=== PATIENT | male | born 1945 | race Caucasian/White ===

== ENCOUNTER 2018-02-07 13:12 | Inpatient (IN) | payer OTHER, BC ==
[2018-02-07] MEDS ORDERED: ceFAZolin 2 GM/SWFI 2 GM/20 ML SYR IVP ONE ×2 (14:14→15:11)
[2018-02-07] MEDS ORDERED: ACETAMINOPHEN 500 MG TAB PO ONE (15:11)
[2018-02-07 15:18] LABS: INR 1.04 (0.83-1.16); PROTIME(PATIENT) 13.8 SEC (12.0-15.0)
--- NOTE | 2018-02-07 15:48 | CPEKG ---
Heart Rate: 63 RR Interval: 952 P-R Interval: 213 QRSD Interval: 88 QT Interval: 388 QTC Interval: 398 P [place]: 27 QRS [place]: 64 T Wave [place]: 7 EKG Severity - NORMAL ECG - EKG Impression: SINUS RHYTHM Electronically Signed By: Maxwell Ward 07-Feb-2018 16:18:35
[2018-02-07] MEDS ORDERED: BUPIVACAINE/EPI 0.5% 30 ML SDV ONE (16:23)
--- NOTE | 2018-02-07 16:31 | GCON ---
[noe duncan] CONSULTATION DATE OF CONSULTATION: 02/07/2018 Patient is a pleasant 72-year-old gentleman who had a mechanical fall yesterday landing on his left h ip. He was actually able to walk on, but then after a long car ride, he was down to [facility], he had worsening pain, sought care today, where hip film revealed a possible left intertrochan teric fracture. He was admitted by Dr. Nickolas Contreras who asked me to see him in consultation. Regarding his exertional tolerance, the patient is able to achieve far greater than 4 METs without an y cardiopulmonary symptoms. He has a history of a normal stress test which was obtained for unclear reasons. He has not had PND, orthopnea, or lower extremity edema. He has not had bleeding problems, did not have constipation. His pain is well controlled right now. He has not had any fever, chills , cough, shortness of breath, nausea, vomiting, diarrhea. REVIEW OF SYSTEMS: Complete 10-point review of systems conducted, negative except as noted in the HP I. PAST MEDICAL HISTORY: 1. 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 2. Hyperlipidemia. 3. Hypothyroidism. ALLERGIES: No known drug allergies. MEDICATIONS: Simvastatin, levothyroxine. 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 Rare alcohol. No tobacco. FAMILY HISTORY: Reviewed and unremarkable. Parents . PHYSICAL EXAMINATION: VITAL SIGNS: Temp 36.5, blood pressure 139/80, pulse 79, breathing 18 times a minute, 96% on room air. GENERAL: No acute distress, sclerae anicteric, oropharynx clear, mucous mem branes moist. NECK: Supple without lymphadenopathy or JVD. LUNGS: Clear to auscultation bilateral ly. HEART: S1, S2. ABDOMEN: Soft, nontender, nondistended. LOWER EXTREMITIES: No edema. Calves no ntender. SKIN: Without rash. NEUROLOGIC: Nonfocal. LABORATORY: Sodium 140, potassium 4.8, chloride 104, bicarb 25, BUN 20, creatinine 0.9, coags normal . White count 5, hematocrit 41, platelets 180,000. EKG, interpreted by me, shows sinus with normal axis and intervals. There is a T-wave inve rsion in lead III but otherwise there are no ST or T-wave changes. There is the appearance of ST-katie vation in V6, but that is artifact. There is no ST elevation. I discussed the case with Dr. Nickolas richardson. ASSESSMENT/PLAN: 72-year-old gentleman with hip fracture. 1. Hip fracture. Unremarkable preoperative cardiac evaluation. The patient may proceed to the OR wi thout further workup or intervention. 2. T8 compression fracture. This is old per the patient, so further workup is not indicated. 3. Hypothyroidism. Continue his levothyroxine. 4. Hyperlipidemia, continue his statin. 5. Pain. The patient's pain is well controlled right now. Recommend scheduled Tylenol, p.r.n. narc otics. Prophylaxis, recommend pharmacologic VTE prophylaxis. DISPOSITION: Per Ortho. Thank you for this consultation. Hospital Medicine will follow with you. /[id number]/MODL
[2018-02-07] MEDS ORDERED: LR 1,000 ML IV ONE (17:34)
--- NOTE | 2018-02-07 17:40 | PDHPUP ---
History & Physical Update H&P update statement: This history and physical update is based on an assessment of the patient which was completed after admission or registration (within 24 hours), but prior to the surgery/procedure. H&P update: no change in patient's condition since H&P completed
[2018-02-07] MEDS ORDERED: ACETAMINOPHEN 500 MG TAB ONE (17:44)
--- NOTE | 2018-02-07 18:07 | GHP ---
[f rep st] PREOP HISTORY AND PHYSICAL DATE OF ADMISSION: 02/07/2018 HISTORY OF PRESENT ILLNESS: The patient is a 72-year-old gentleman who is known to me. He fell yest erday walking down or stepping off a curb in [place], [place]. He was able to initially ambulat e but after a long car ride he noticed pain across his left chest and left hip. He has discomfort wi th range of motion and weightbearing to his left hip. He has previous history for back complaints, o therwise has no other focal complaints of numbness, tingling, belly pain, back pain. PAST MEDICAL HISTORY: Hyperlipidemia, hypothyroidism and squamous cell cancer. MEDICATIONS: Simvastatin and levothyroxine. ALLERGIES: No known drug allergies. 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 No tobacco. Minimal alcohol. OBJECTIVE: GENERAL: Healthy gentleman, in no acute distress. He seated in the chair next to the be dside, and pleasant and cooperative. HEENT: Normocephalic. Focused examination of his left lower e xtremity reveals tenderness over his left greater trochanter which is minimal. There is no skin karl kdown or wound. He has range of motion actively to his hip with mild discomfort only. Leg lengths a re equal. There is no external rotation. He has intact digital flexion and extension, wrist flexion and extension bilateral upper extremities, and bilateral plantar flexion, dorsiflexion, EHL function . IMAGING: Radiographs of his hip demonstrate a nondisplaced intertrochanteric femur fracture to his l eft side. IMPRESSION: Left intertrochanteric femur fracture. TREATMENT PLAN: I have recommended surgical stabilization with intramedullary implant. I have outli cody the surgical procedure, risks, benefits, and alternatives. He wishes to proceed. Written consen t was signed and placed in patient's chart. /[id number]/MODL
--- NOTE | 2018-02-07 18:07 | PDANEPAE ---
ANE History of Present Illness Patient presents for R hip fracture and TFN ANE Past Medical History - Pulmonary History Hx Sleep Apnea: No Sleep Apnea Screening Result - Last Documented: Positive - Endocrine History Hx Diabetes: No ANE Review of Systems Review of Systems: ANE Patient History - Allergies Allergies/Adverse Reactions: No Allergies Allergy (Verified 02/07/18 14:14) - Home Medications Home Medications: Ibuprofen [Motrin (*)] 200 - 400 mg PO DAILY PRN 02/07/18 [Last Taken 02/07/18 400mg] Levothyroxine [Synthroid 88 mcg (*)] 88 mcg PO DAILY06 02/07/18 [Last Taken ] Simvastatin [Zocor] 20 mg PO HS 02/07/18 [Last Taken 02/06/18] - NPO status NPO Status: no food or drink >8 hours NPO Since - Liquids (Date): 02/07/18 NPO Since - Liquids (Time): 09:00 NPO Since - Solids (Date): 02/07/18 NPO Since - Solids (Time): 09:00 - Anes Hx Anes Hx: no prior problems - Smoking Hx Smoking Status: Never smoked ANE Labs/Vital Signs - Labs Result Diagrams: 02/07/18 14:50 02/07/18 14:50 - Vital Signs Blood Pressure: 157/90 Heart Rate: 67 Respiratory Rate: 18 O2 Sat (%): 93 Height: 190.5 cm Weight: 92.6 kg ANE Physical Exam - Airway Mallampati Score: Class 1 Mouth exam: normal dental/mouth exam, poor dentition - Pulmonary Pulmonary: no respiratory distress - Cardiovascular Cardiovascular: regular rate and rhythym - ASA Status ASA Status: II ANE Anesthesia Plan Anesthesia Plan: GA w LMA (RBA discussed)
[2018-02-07] MEDS ORDERED: fentaNYL 100 MCG/2 ML INJ ONE ×2 (18:15→18:53)
[2018-02-07] MEDS ORDERED: PROPOFOL 200 MG/20 ML VIAL ONE (18:15)
[2018-02-07] MEDS ORDERED: LIDOCAINE 2% 5 ML SDV ONE (18:17)
[2018-02-07] MEDS ORDERED: PHENYLEPHRINE HCL 100 MCG/ML SYR ONE (18:50)
[2018-02-07] MEDS ORDERED: DEXAMETHASONE 4 MG/ML VIAL ONE (19:12)
[2018-02-07] MEDS ORDERED: ONDANSETRON 4 MG/2 ML VIAL ONE (19:12)
[2018-02-07] MEDS ORDERED: OXYCODONE/APAP 5/325 TAB PO PRN ×2 (19:25→19:41)
[2018-02-07] MEDS ORDERED: ONDANSETRON 4 MG/2 ML VIAL IVP PRN ×2 (19:25→19:41)
[2018-02-07] MEDS ORDERED: HYDROCODONE/APAP 5/325 TAB PO PRN ×2 (19:25→19:41)
[2018-02-07] MEDS ORDERED: D5W 1/2 NS W/ 20 KCl/L 1,000 ML IV SCH (19:30)
[2018-02-07] MEDS ORDERED: fentaNYL 100 MCG/2 ML INJ IVP PRN (19:41)
[2018-02-07] MEDS ORDERED: LR 500 ML IV PRN (19:41)
[2018-02-07] MEDS ORDERED: NALOXONE HCL 0.4 MG/ML INJ IVP PRN (19:41)
--- NOTE | 2018-02-07 19:42 | POSTANESTH ---
Post Anesthetic Evaluation Cardiovascular Status: Similar to Pre-Op Cond Respiratory Status: Similar to Pre-op Cond. Level of Consciousness/Mental Status: Alert and Oriented Pain Control: Adequate, Prn Tx Ordered Nausea/Vomiting Control: Adequate, Prn Tx Ordered Complications Possibly Related to Anesthesia: None Noted
[2018-02-07] MEDS ORDERED: ATORVASTATIN CALCIUM 10 MG TAB PO SCH (21:00)
[2018-02-08 03:54] VITALS: RESP 16
[2018-02-08] MEDS ORDERED: LEVOTHYROXINE 88 MCG TAB PO SCH (06:00)
--- NOTE | 2018-02-08 06:46 | PDIAF ---
- Diagnosis Diagnosis: left intertroch fx Code Status: Full Code - Medication Management Discharge Medications: Medications to Continue on Transfer Ibuprofen [Motrin (*)] 200 - 400 mg PO DAILY PRN 02/07/18 [Last Taken 02/07/18 400mg] Levothyroxine [Synthroid 88 mcg (*)] 88 mcg PO DAILY06 02/07/18 [Last Taken ] Simvastatin [Zocor] 20 mg PO HS 02/07/18 [Last Taken 02/06/18] Discharge Medications: Refer to the Discharge Home Medication list for PRN reason. - Orders Services needed: Physical Therapy Diet Recommendation: no restrictions on diet Diet Texture: Regular Texture Diet Activity/Weight Bearing Restrictions: 50% wb. rom as soha. daily dressing changes. no soaking or immersion. may shower without bandage. f/u at two weeks [facility]. seek attn for increasing pain, redness, drainage or other focal complaint - Follow Up Care Current Providers and Referrals: Humberto Marcos MD [Primary Care Provider] - Andry Contreras MD [Medical Doctor] -
--- NOTE | 2018-02-08 07:11 | SOAPPROG ---
SOAP Progress Note Assessment/Plan: Assessment: s/p im nail left intertroch fx Plan:stable 50% wb d/c home when cleared by pt dvt precautions aspirin daily 02/08/18 07:10 Subjective: no complaints Objective: Vital Signs Temp Pulse Resp BP Pulse Ox 36.4 C 65 16 133/83 H 94 02/08/18 03:53 02/08/18 03:53 02/08/18 03:53 02/08/18 03:53 02/08/18 03:53 Laboratory Results 02/07/18 14:50 02/07/18 14:50 02/07/18 02/08/18 02/09/18 05:59 05:59 05:59 Intake Total 1636 Output Total 50 Balance 1586 PT 13.8 SEC (12.0-15.0) 02/07/18 14:50 INR 1.04 (0.83-1.16) 02/07/18 14:50 dressing intact intact pf,df,ehl toes warm and pink neg homans giovanni xrays stable no fx or lucency ICD10 Worksheet Patient Problems: Problems Problem Status Onset Hip fracture Acute - ICD10 Problem Qualifiers (1) Hip fracture
--- NOTE | 2018-02-08 07:19 | PDIAF ---
- Diagnosis Diagnosis: left intertroch fx Code Status: Full Code - Medication Management Discharge Medications: Medications to Continue on Transfer Ibuprofen [Motrin (*)] 200 - 400 mg PO DAILY PRN 02/07/18 [Last Taken 02/07/18 400mg] Levothyroxine [Synthroid 88 mcg (*)] 88 mcg PO DAILY06 02/07/18 [Last Taken ] Simvastatin [Zocor] 20 mg PO HS 02/07/18 [Last Taken 02/06/18] Aspirin [Aspirin 325 mg (*)] 325 mg PO DAILY tab 02/08/18 [Last Taken Unknown] oxyCODONE/APAP 5/325 [Percocet 5/325 (*)] 1 - 2 tab PO Q3HRS PRN #60 tab [Last Taken Unknown] Discharge Medications: Refer to the Discharge Home Medication list for PRN reason. - Orders Services needed: Physical Therapy Diet Recommendation: no restrictions on diet Diet Texture: Regular Texture Diet Activity/Weight Bearing Restrictions: 50% wb. rom as soha. daily dressing changes. no soaking or immersion. may shower without bandage. f/u at two weeks [facility]. seek attn for increasing pain, redness, drainage or other focal complaint - Follow Up Care Current Providers and Referrals: Humberto Marcos MD [Primary Care Provider] - Andry Contreras MD [Medical Doctor] -
--- NOTE | 2018-02-08 08:58 | PDMN ---
Medical Necessity Medical necessity: Pt meets IP criteria per PA; est los >2 mn for eval/tx of L hip fx s/p fall; admit for further workup/monitoring, surgical intervention & therapies; hx squamous cell cancer of tongue s/p chemo/radiation/surgery; per H& P & order 04/09/18
[2018-02-08] MEDS ORDERED: ENOXAPARIN 40 MG/0.4 ML SYR SC SCH (09:00)
[2018-02-08] MEDS ORDERED: ASPIRIN 325 MG TAB PO SCH (09:00)
--- NOTE | 2018-02-08 11:20 | ASMTCMCOM ---
CM Note CM Note Notes: Pt medically stable for d/c with [facility]. Pt rec outpatient and pt is interested in HHC even if it is for safety eval only. Orders sent in [email or web address]. Date Signed: 02/08/2018 11:20 AM Electronically Signed By:ASHISH Stout
[2018-02-08 12:28] VITALS: BP 109/72; PULSE 70; TEMP 97.9; O2SAT 89
--- NOTE | 2018-02-08 12:48 | HOSPPROG ---
Hospitalist Progress Note Assessment/Plan: 72y male with c/o hip pain. First encounter, chart reviewed. D/W Dr Contreras. #Hip fracture -pod #1 -doing well -PT eval #Pain -controlled #Hypothyroid -meds #T8 fx -stable #Dispo -home per Dr Contreras Subjective: Up in chair. Feels great. Pain stable. Objective: Vital Signs Temp Pulse Resp BP Pulse Ox 36.6 C 70 16 109/72 89 L 02/08/18 12:00 02/08/18 12:00 02/08/18 12:00 02/08/18 12:00 02/08/18 12:00 Laboratory Results 02/07/18 14:50 02/07/18 14:50 02/07/18 02/08/18 02/09/18 05:59 05:59 05:59 Intake Total 1636 Output Total 50 Balance 1586 PT 13.8 SEC (12.0-15.0) 02/07/18 14:50 INR 1.04 (0.83-1.16) 02/07/18 14:50 - Physical Exam Constitutional: no apparent distress, appears nourished, not in pain Eyes: PERRL, anicteric sclera, EOMI Ears, Nose, Mouth, Throat: moist mucous membranes, hearing normal, ears appear normal Cardiovascular: regular rate and rhythym, No JVD, No edema Respiratory: no respiratory distress, no rales or rhonchi, clear to auscultation Gastrointestinal: normoactive bowel sounds, No tenderness, No ascites Skin: warm, normal color, No mottled Musculoskeletal: no joint effusions, pain with ROM, generalized weakness Neurologic: AAOx3 Psychiatric: interacting appropriately, not anxious, not encephalopathic, thought process linear ICD10 Worksheet Patient Problems: Problems Problem Status Onset Hip fracture Acute
--- NOTE | 2018-02-08 14:12 | ASDISCHSUM ---
Discharge Information Plan Status:Home with Home Health Medically Cleared to Leave: Discharge Date:02/08/2018 01:00 PM CM D/C Disposition:Home Health Service ADT D/C Disposition:Home Health Service Projected Discharge Date:02/08/2018 11:00 AM Transportation at D/C:Family Discharge Delay Reason: Follow-Up Date:02/08/2018 11:00 AM Discharge Slot: Final Diagnosis: Placement Information Referral Type:*Home Health Care Services Referral ID:[id number] Provider Name:[facility] [place] Address 1:[address] [place] [address] Address 2: City:[place] Selection Factors: State:[place] Patient Contact Information Contact Name:MATY Relationship: Address:[address] [place] [address] City:[place] Alternate Phone: State/Zip Code:[place] [address] Email: Financial Information Financial Class:Medicare Primary Plan Desc:MEDICARE INPATIENT Primary Plan Number:[id number] Secondary Plan Desc:[employer] [place] Secondary Plan Number:[id number] Assessment Information [facility] CM Progress Note CM Note CM Note Notes: Pt medically stable for d/c with [facility]. Pt rec outpatient and pt is interested in HHC even if it is for safety eval only. Orders sent in [employer]. Date Signed: 02/08/2018 11:20 AM Electronically Signed By:ASHISH Stout Intervention Information
== END 2018-02-08 13:00 | disposition home health service (06) | DRG 482 ==
LOC: F3N 13:33 → OBSVTOIN 13:33
PROVIDERS: ADMIT Orthopaedic Surgery; ATTEND Orthopaedic Surgery
PROC: 0QS706Z Reposition Left Upper Femur with Intramedullary Internal Fixation Device, Open Approach (ICD-10-PCS; principal; 2018-02-07 17:00)
DX: S72.142A Displaced intertrochanteric fracture of left femur, initial encounter for closed fracture (principal); W10.1XXA Fall (on)(from) sidewalk curb, initial encounter; Y92.480 Sidewalk as the place of occurrence of the external cause; E78.5 Hyperlipidemia, unspecified; E03.9 Hypothyroidism, unspecified; Z85.820 Personal history of malignant melanoma of skin
CPT/HCPCS: 97161-GP; 97165-GO; C1713; C1769; G8978-GP-CI; G8979-GP-CI; G8980-GP-CI; G8987-GO-CI; G8988-GO-CI; G8989-GO-CI; J0690; J1100; J1650; J2370; J2405; J2704; J3010

== ENCOUNTER → 2018-02-07 | Outpatient (CLI) | payer OTHER, BC | LOC: BMCIMAGING 11:33 | PROVIDERS: ATTEND Emergency Medicine | DX: M95.4 Acquired deformity of chest and rib (principal); M25.552 Pain in left hip; M85.80 Other specified disorders of bone density and structure, unspecified site ==

== ENCOUNTER → 2018-03-21 | Outpatient (CLI) | payer OTHER, BC | LOC: BMCIMAGING 09:39 | PROVIDERS: ATTEND Orthopaedic Surgery | DX: Z47.89 Encounter for other orthopedic aftercare (principal); S72.145D Nondisplaced intertrochanteric fracture of left femur, subsequent encounter for closed fracture with routine healing ==